=== PATIENT | female | born 1950 | race Hispanic/Latino ===

== ENCOUNTER 2016-10-26 15:20 | Emergency (ER) | payer OTHER ==
[2016-10-26 16:34] VITALS: BP 119/70
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
[2016-10-26] MEDS ORDERED: TYLENOL PO ONE (18:09)
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
== END 2016-10-26 18:15 | disposition home or self-care (01) ==
LOC: ED 15:20
DX: S23.41XA Sprain of ribs, initial encounter (principal); S20.219A Contusion of unspecified front wall of thorax, initial encounter; V49.49XA Driver injured in collision with other motor vehicles in traffic accident, initial encounter; Y93.9 Activity, unspecified; Y92.9 Unspecified place or not applicable; Y99.9 Unspecified external cause status
CPT/HCPCS: 71111; 99283